=== PATIENT | female | born 1940 | race Caucasian/White ===

== ENCOUNTER 2024-03-19 14:30 | Observation (INO) ==
[2024-03-19 16:41] LABS: ABS Lymphocytes 0.5 10^3/uL (1.0-4.8); ABS Neutrophils 7.4 10^3/uL (1.5-7.6); Eosinophil % 0.1 %; Hematocrit 31.8 % (35-45); Hemoglobin 10.8 g/dL (11.5-14.3); Lymphocyte % 5.8 %; Mean Corpuscular Hemoglobin 30.2 pg (27-33); Mean Corpuscular Hgb Conc 33.9 g/dL (31-36); Mean Corpuscular Volume 88.9 fL (80-97); Platelet Count 252 10^3/uL (150-450); Red Blood Count 3.58 10^6/uL (3.63-4.92); Red Cell Distribution Width 13.5 % (12-17)
[2024-03-19] MEDS: NS 0.9% 1000 ml BAG 1,000 ML IV ONE (16:56)
[2024-03-19 17:16] LABS: C Reactive Protein 65.83 mg/L (<8.01); Calcium 10.1 mg/dL (8.6-10.3); Creatinine, Serum 1.68 mg/dL (0.51-0.95); Potassium 4.3 mmol/L (3.5-5.0); eGFR CKD-EPI 29.6 (>60)
[2024-03-19 17:23] LABS: Albumin 3.9 g/dL (3.2-5.2); Albumin/Globulin Ratio 1.4 (1-3); Globulin 2.7 g/dL (2-4); Magnesium 1.9 mg/dL (1.9-2.7); Total Bilirubin 0.7 mg/dL (0.2-1.0); Total Protein 6.6 g/dL (6.4-8.9)
[2024-03-19 17:41] LABS: Urine Appearance Clear; Urine Bilirubin Negative (Negative); Urine Blood Negative (Negative); Urine Color Yellow; Urine Glucose Negative (Negative); Urine Ketones 1+ (Negative); Urine Nitrite Negative (Negative); Urine Protein Negative (Negative); Urine Specific Gravity 1.019 (1.002-1.030); Urine Urobilinogen Negative (Negative)
[2024-03-19] MEDS ORDERED: Polyethylene Glycol 3350 17 GM PACKET PO PRN (18:25)
[2024-03-19] MEDS: Lactated Ringers 1000 ml BAG 1,000 ML IV ONE (19:08)
[2024-03-19] MEDS: oxyCODONE SR 10 mg TAB PO SCH (21:11)
[2024-03-19] MEDS: Lactated Ringers 1000 ml BAG 1,000 ML IV SCH (21:15)
[2024-03-20 06:25] LABS: Calcium 8.8 mg/dL (8.6-10.3); Creatinine, Serum 1.16 mg/dL (0.51-0.95); eGFR CKD-EPI 46.2 (>60)
[2024-03-21 06:36] LABS: ABS Eosinophils 0.1 10^3/uL (0.0-0.5); ABS Lymphocytes 0.6 10^3/uL (1.0-4.8); ABS Monocytes 0.8 10^3/uL (0.0-0.9); ABS Neutrophils 4.1 10^3/uL (1.5-7.6); Eosinophil % 1.3 %; Hematocrit 28.2 % (35-45); Hemoglobin 9.5 g/dL (11.5-14.3); Lymphocyte % 11.5 %; Mean Corpuscular Hemoglobin 30.1 pg (27-33); Mean Corpuscular Hgb Conc 33.8 g/dL (31-36); Mean Corpuscular Volume 89.3 fL (80-97); Mean Platelet Volume 8.1 fL (7.5-11.2); Nucleated Red Blood Cells % 0.1 %/100WBC (0.0-0.8); Platelet Count 180 10^3/uL (150-450); Red Blood Count 3.16 10^6/uL (3.63-4.92); Red Cell Distribution Width 13.7 % (12-17); White Blood Count 5.6 10^3/uL (3.8-11.8)
[2024-03-21 07:02] LABS: Calcium 9.5 mg/dL (8.6-10.3); Creatinine, Serum 0.96 mg/dL (0.51-0.95); Potassium 3.9 mmol/L (3.5-5.0)
[2024-03-21] MEDS: Lactated Ringers 1000 ml BAG 1,000 ML IV ONE (10:08)
[2024-03-21] MEDS: oxyCODONE SR 10 mg TAB PO SCH (20:21)
[2024-03-22 13:58] VITALS: BP 158/83
== END 2024-03-22 14:45 | disposition home health service (06) ==
LOC: EDHOLD 14:30 → ED 14:30 → MED 18:32
PROVIDERS: ADMIT Internal Medicine; ATTEND Hospitalist